=== PATIENT | male | born 1950 ===

== ENCOUNTER → 2017-11-20 | Outpatient (CLI) | payer OTHER ==
[~2017-11-20] MED LIST: Aspir 8181 MG; GABA300; OXYACE5T PO; Percocet 5-3251 EACH PO; Prinivil10 MG PO
== END | disposition home or self-care (01) ==
LOC: LAB SHORT 14:00 → PLD 14:00
DX: L82.1 Other seborrheic keratosis (principal)
CPT/HCPCS: 88305

== ENCOUNTER 2022-03-17 16:10 | Emergency (ER) | payer OTHER ==
[~2022-03-17] VITALS: Ht 175.3 cm; Wt 94.8 kg
[~2022-03-17 16:10] MED LIST changes: +IRBESARTAN150 M3 PO
[2022-03-17 17:02] LABS: BASOPHILS ABSOLUTE AUTO 0.08 K/mm3 (0.00-0.23); BASOPHILS PERCENT AUTO 1 % (0-2); EOSINOPHILS ABSOLUTE AUTO 0.17 K/mm3 (0.00-0.68); EOSINOPHILS PERCENT AUTO 2 % (0-6); Hematocrit 44.5 % (37.0-53.0); Hemoglobin 15.2 g/dL (13.5-17.5); IMMATURE GRAN ABSOLUTE AUTO 0.05 K/mm3 (0.00-0.10); IMMATURE GRAN PERCENT AUTO 1 % (0-1); LYMPHOCYTES ABSOLUTE AUTO 2.58 K/mm3 (0.84-5.20); LYMPHOCYTES PERCENT AUTO 26 % (21-46); MONOCYTES ABSOLUTE AUTO 0.66 K/mm3 (0.16-1.47); MONOCYTES PERCENT AUTO 7 % (4-13); Mean Corpuscular HGB 33.3 pg (26.0-34.0); Mean Corpuscular HGB Conc 34.2 g/dL (31.5-36.5); Mean Corpuscular Volume 98 fL (80-100); Mean Platelet Volume 8.9 fL (9.1-12.4); NEUTROPHILS ABSOLUTE AUTO 6.33 K/mm3 (1.96-9.15); NEUTROPHILS PERCENT AUTO 64 % (41-73); Platelet Count 325 K/mm3 (150-400); RDW Coefficient Variation 11.9 % (11.7-14.2); RDW Standard Deviation 43.2 fL (35.1-46.3); Red Blood Cell Count 4.56 M/mm3 (4.30-5.90); White Blood Cell Count 9.87 K/mm3 (4.00-11.30)
[2022-03-17 17:20] LABS: Free Thyroxine 0.96 ng/dL (0.70-1.60); Magnesium, Blood 2.1 mg/dL (1.6-2.4)
[2022-03-17 17:23] LABS: Albumin, Blood 3.4 g/dL (3.4-5.0); Albumin/Globulin Ratio 1.1 (0.8-1.8); Bilirubin, Total 0.3 mg/dL (0.1-1.0); Bun/Creatinine Ratio 14.8 (12.0-20.0); Calcium, Blood 8.8 mg/dL (8.5-10.1); Creatinine, Blood 1.15 mg/dL (0.60-1.20); Potassium, Blood 4.1 mmol/L (3.5-5.5); Thyroid Stimulating Hormone 2.69 uIU/mL (0.360-4.800); Total Protein, Blood 6.4 g/dL (6.4-8.2)
[2022-03-17] MEDS ORDERED: METO50ER PO (20:12)
== END 2022-03-17 20:42 | disposition home or self-care (01) ==
LOC: ER 16:10
PROVIDERS: Student in an Organized Health Care Education/Training Program
DX: I48.91 Unspecified atrial fibrillation (principal); I10 Essential (primary) hypertension; J43.9 Emphysema, unspecified; I25.2 Old myocardial infarction; F17.210 Nicotine dependence, cigarettes, uncomplicated; Z79.82 Long term (current) use of aspirin; Z79.899 Other long term (current) drug therapy; Z86.73 Personal history of transient ischemic attack (TIA), and cerebral infarction without residual deficits; Z95.5 Presence of coronary angioplasty implant and graft
CPT/HCPCS: 71045; 80053; 83735; 84439; 84443; 84484; 85025; 93005; 93010; 96374; 99285-25; A9270; J7030

== ENCOUNTER 2024-10-19 07:04 | Day surgery (SDC) | payer OTHER ==
[~2024-10-19] VITALS: Ht 177.8 cm; Wt 98.9 kg
[~2024-10-19 07:04] MED LIST changes: +METO50ER PO; +NS 500 ML IV ONE
[2024-10-19] MEDS ORDERED: CeFAZolin Sodium 2,000 MG VIAL ONE (07:42)
[2024-10-19] MEDS ORDERED: NS 500 ML IV ONE (07:56)
[2024-10-19] MEDS ORDERED: XARELTO20 M1 PO (07:59)
[2024-10-19] MEDS ORDERED: PRAV20 PO (08:00)
[2024-10-19] MEDS ORDERED: NEURONTIN300 MG PO (08:01)
--- NOTE | 2024-10-19 08:10 | NUR ---
10/19/[address] [facility] 0804: TIMEOUT AND INJECTION BY DR DARLING LEFT 7 CC OF MIX OF 9 CC LIDOCAINE 1% WITH EPI 1:100,000 WITH 1 CC SODIUM BICARB, RIGHT 8 CC OF MIX OF 9 CC LIDOCAINE 1% WITH EPI 1:100,000 WITH 1 CC SODIUM BICARB
[2024-10-19] MEDS ORDERED: propofoL 20 ML IV ONE ×2 (08:19→08:35)
[2024-10-19] MEDS ORDERED: Midazolam HCl 1MG / ML 2ML Vial ONE (08:19)
[2024-10-19] MEDS ORDERED: Ketorolac Tromethamine 30mg Vial ONE (08:31)
[2024-10-19 09:41] VITALS: BP 129/66
== END 2024-10-19 09:30 | disposition home or self-care (01) ==
LOC: ORSCSDS 07:04
PROVIDERS: Orthopaedic Surgery
PROC: 01N54ZZ Release Median Nerve, Percutaneous Endoscopic Approach (ICD-10-PCS; principal; 2024-10-19 08:30)
DX: G56.03 Carpal tunnel syndrome, bilateral upper limbs (principal); I10 Essential (primary) hypertension; I48.91 Unspecified atrial fibrillation; G62.1 Alcoholic polyneuropathy; F17.210 Nicotine dependence, cigarettes, uncomplicated; Z79.01 Long term (current) use of anticoagulants; Z79.899 Other long term (current) drug therapy
CPT/HCPCS: J0690; J1885; J2250; J2704; J7040

== ENCOUNTER 2025-02-09 12:45 | Emergency (ER) | payer OTHER ==
[~2025-02-09] VITALS: Ht 175.3 cm; Wt 99.8 kg
[~2025-02-09 12:45] MED LIST changes: +NEURONTIN300 MG PO; -NS 500 ML IV ONE; +PRAV20 PO; +XARELTO20 M1 PO
[2025-02-09] MEDS ORDERED: METPRE4DP PO (13:08)
[2025-02-09] MEDS ORDERED: Metoclopramide HCl 5MG / ML 2ML Vial IV ONE (13:30)
[2025-02-09 14:14] LABS: BASOPHILS ABSOLUTE AUTO 0.06 K/mm3 (0.00-0.23); BASOPHILS PERCENT AUTO 1 % (0-2); EOSINOPHILS ABSOLUTE AUTO 0.05 K/mm3 (0.00-0.68); EOSINOPHILS PERCENT AUTO 1 % (0-6); Hematocrit 37.1 % (37.0-53.0); Hemoglobin 11.8 g/dL (13.5-17.5); IMMATURE GRAN ABSOLUTE AUTO 0.06 K/mm3 (0.00-0.10); IMMATURE GRAN PERCENT AUTO 1 % (0-1); LYMPHOCYTES ABSOLUTE AUTO 2.44 K/mm3 (0.84-5.20); LYMPHOCYTES PERCENT AUTO 25 % (21-46); MONOCYTES ABSOLUTE AUTO 0.76 K/mm3 (0.16-1.47); MONOCYTES PERCENT AUTO 8 % (4-13); Mean Corpuscular HGB Conc 31.8 g/dL (31.5-36.5); Mean Corpuscular Volume 79 fL (80-100); NEUTROPHILS ABSOLUTE AUTO 6.33 K/mm3 (1.96-9.15); NEUTROPHILS PERCENT AUTO 65 % (41-73); NRBC ABSOLUTE 0.00 K/mm3 (0.00-0.02); NRBC Auto 0.0 /100 WBC (0.0-0.2); Platelet Count 501 K/mm3 (150-400); RDW Coefficient Variation 16.9 % (11.7-14.2); RDW Standard Deviation 47.6 fL (35.1-46.3)
[2025-02-09 14:34] LABS: Alanine Aminotransfer (ALT/SGP 26.0 U/L (12-78); Albumin, Blood 3.5 g/dL (3.4-5.0); Albumin/Globulin Ratio 1.1 (0.8-1.8); Anion Gap 6.0 mmol/L (3-11); Aspartate Aminotrans (AST/SGOT 19.0 U/L (12-37); Bilirubin, Total 0.3 mg/dL (0.1-1.0); Blood Urea Nitrogen 19.0 mg/dL (8-24); CO2, Blood 28.0 mmol/L (21-32); Calcium, Blood 8.8 mg/dL (8.5-10.1); Chloride, Blood 104.0 mmol/L (98-108); Creatinine, Blood 1.1 mg/dL (0.60-1.20); Globulin, Blood 3.3 g/dL (2.2-4.0); Glucose, Blood 111.0 mg/dL (70-99); Magnesium, Blood 2.7 mg/dL (1.6-2.4); Potassium, Blood 4.2 mmol/L (3.5-5.5); Sodium, Blood 134.0 mmol/L (136-145); Total Protein, Blood 6.8 g/dL (6.4-8.2)
[2025-02-09 15:00] VITALS: BP 114/83
== END 2025-02-09 15:22 | disposition home or self-care (01) ==
LOC: ER 12:45
PROVIDERS: Student in an Organized Health Care Education/Training Program
DX: R55 Syncope and collapse (principal); R51.9 Headache, unspecified; I25.2 Old myocardial infarction; I10 Essential (primary) hypertension; J44.9 Chronic obstructive pulmonary disease, unspecified; F17.210 Nicotine dependence, cigarettes, uncomplicated; Z86.79 Personal history of other diseases of the circulatory system; Z79.82 Long term (current) use of aspirin; Z79.899 Other long term (current) drug therapy
CPT/HCPCS: 80053; 83735; 85025; 93005; 93010; 96374; 99284-25; A9270; J2765; J7120

== ENCOUNTER → 2025-04-13 | Outpatient (CLI) | payer OTHER ==
[~2025-04-13] MED LIST changes: +METPRE4DP PO
[2025-04-13 15:00] LABS: Stool Occult Bld Immuno 1 Positive (NEGATIVE)
== END ==
LOC: LAB 09:30 → LAB SHORT 09:30
PROVIDERS: Physician Assistant
DX: D50.9 Iron deficiency anemia, unspecified (principal)
CPT/HCPCS: 82274

== ENCOUNTER 2025-05-07 09:50 | Day surgery (SDC) | payer OTHER ==
[~2025-05-07] VITALS: Ht 162.6 cm; Wt 100.2 kg
[2025-05-07] VITALS (20 sets, daily range): BP systolic 114–178; BP diastolic 64–104
--- NOTE | 2025-05-07 10:59 | NUR ---
Patient confirms NPO status and agrees with scheduled surgery. Patient states colon prep results clear. Patient States Post-Procedure ride home has been arranged. Lungs clear T/O to Auscultation.
[2025-05-07] MEDS ORDERED: Benzocaine Oral Spray 0.5ML UD ONE (11:14)
--- NOTE | 2025-05-07 11:35 | NUR ---
05/07/25 1135 Adriana Bejarano CONFIRMED AND REVIEWED H&P, MEDCICATIONS, ALLERGIES, MEDICAL HISTORY, RESPIRATORY HISTORY, VITAL SIGNS, 3-LEAD EKG, CONSENTS, AND PHYSICIAN ORDERS. PATIENT CONFIRMS NPO STATUS AND AGREES WITH SCHEDULED PROCEDURE. MONITOR INTACT WITH CONTINUOUS PULSE OXIMETRY, CAPNOGRAPHY, 3-LEAD EKG, INTERMITTENT BP. SUPPLEMENTAL O2 TO BE TITRATED THROUGHOUT PROCEDURE TO MAINTAIN O2 SATURATION ABOVE 90%. PATIENT DETERMINED TO BE ASA APPROPRIATE FOR PROPOFOL SEDATION PRIOR TO START OF PROCEDURE BY DR. SIMPSON
--- NOTE | 2025-05-07 12:40 | NUR ---
TO STEP POST PROCEDURE. CORBY PO WELL. DENIES PAIN, NAUSEA, SOB. DC'D IV INTACT. VERBALIZED UNDERSTANDING OF DC INSTRUCTIONS. DC'D VIA WC TO PRIVATE CAR WITH [employer] SERVICES COORDINATOR.
== END 2025-05-07 12:25 | disposition home or self-care (01) ==
LOC: ORSCMMR 09:50 → ORD 11:15 → ORSCMMR 11:15
PROVIDERS: Internal Medicine Gastroenterology
PROC: 0DBP8ZX Excision of Rectum, Via Natural or Artificial Opening Endoscopic, Diagnostic (ICD-10-PCS; principal; 2025-05-07 11:15)
PROC: 0DB68ZX Excision of Stomach, Via Natural or Artificial Opening Endoscopic, Diagnostic (ICD-10-PCS; principal; 2025-05-07 11:15)
PROC: 0DB98ZX Excision of Duodenum, Via Natural or Artificial Opening Endoscopic, Diagnostic (ICD-10-PCS; principal; 2025-05-07 11:15)
PROC: 0DBK8ZX Excision of Ascending Colon, Via Natural or Artificial Opening Endoscopic, Diagnostic (ICD-10-PCS; principal; 2025-05-07 11:15)
PROC: 0DBL8ZX Excision of Transverse Colon, Via Natural or Artificial Opening Endoscopic, Diagnostic (ICD-10-PCS; principal; 2025-05-07 11:15)
DX: D50.0 Iron deficiency anemia secondary to blood loss (chronic) (principal); D12.3 Benign neoplasm of transverse colon; D12.2 Benign neoplasm of ascending colon; R19.5 Other fecal abnormalities; Z86.0101 Personal history of adenomatous and serrated colon polyps; I48.91 Unspecified atrial fibrillation; E78.00 Pure hypercholesterolemia, unspecified; I10 Essential (primary) hypertension; Z85.46 Personal history of malignant neoplasm of prostate; Z79.82 Long term (current) use of aspirin; Z79.01 Long term (current) use of anticoagulants; Z79.899 Other long term (current) drug therapy; F17.210 Nicotine dependence, cigarettes, uncomplicated
CPT/HCPCS: 88305; 88342; A9270; J2704; J7120